=== PATIENT | male | born 1950 | race American Indian/Alaskan Native ===

== ENCOUNTER 2016-10-15 10:55 | Emergency (ER) | payer OTHER, SELFPAY ==
[2016-10-15 11:34] VITALS: BP 164/106
--- NOTE | 2016-10-15 11:34 | Emergency Department Report ---
Chief Complaint: Chest Pain Stated Complaint: GAS IN CHEST PAIN Time Seen by Provider: 10/15/16 11:31 - HPI History of Present Illness: PT c/o feeling "gas" in chest since 399. PT states he has felt like this daily for 6 months. - ROS Review of Systems: + nausea - vomiting - Exam Physical Exam: PT looks well, non toxic. steady gait no acute resp distress in triage MSE screening note: Focused history and physical exam performed. Due to findings the following was ordered: ekg, labs, xr ED Disposition for MSE Condition: Stable
[2016-10-15 11:54] LABS: Basophils % (Auto) 0.8 % (0.0-1.8); Eosinophils % (Auto) 2.1 % (0.0-4.3); Hemoglobin 12.4 gm/dl (11.8-15.2); Mean Corpuscular HGB Conc 33 % (32-34); Mean Corpuscular Hemoglobin 31 pg (28-32); Mean Corpuscular Volume 93 fl (84-94); Platelet Count 152 K/mm3 (140-440); Red Cell Distribution Width 15.8 % (13.2-15.2); White Blood Count 6.8 K/mm3 (4.5-11.0)
[2016-10-15 12:04] LABS: INR 0.94 (0.87-1.13)
[2016-10-15 12:05] LABS: Partial Thromboplastin Time 30.9 Sec. (24.2-36.6)
[2016-10-15 12:07] LABS: Alanine Aminotransferase 8 units/L (7-56); Albumin 4.2 g/dL (3.9-5); Albumin/Globulin Ratio 1.4 %; Alkaline Phosphatase 56 units/L (35-129); Anion Gap 17 mmol/L; BUN/Creatinine Ratio 11.53; Blood Urea Nitrogen 15 mg/dL (9-20); Carbon Dioxide 27 mmol/L (22-30); Chloride 98.9 mmol/L (98-107); Glucose 90 mg/dL (75-100); Lipase 22 units/L (13-60); Potassium 4.5 mmol/L (3.6-5.0); Sodium 138 mmol/L (137-145); Total Protein 7.1 g/dL (6.3-8.2)
--- NOTE | 2016-10-15 12:33 | XRay Report ---
CHEST 2 VIEWS INDICATION: Chest pain. COMPARISON: 03/22/2015. FINDINGS: PA and lateral chest radiographs demonstrate normal cardiomediastinal silhouette. Clear, hyperexpanded lungs/COPD. Stable left AICD with dual-chamber leads. Intact bones. CONCLUSION: COPD without acute chest process, as described. Thank you for the opportunity to participate in this patient's care.
--- NOTE | 2016-10-15 23:34 | ED Elopement Review ---
ED Pt Elopement review - Results review Lab results: Laboratory Tests 10/15/16 10/15/16 10/15/16 11:37 11:37 11:37 WBC 6.8 RBC 4.00 Hgb 12.4 Hct 37.0 MCV 93 MCH 31 MCHC 33 RDW 15.8 H Plt Count 152 Lymph % (Auto) 21.9 Maverick % (Auto) 7.6 H Eos % (Auto) 2.1 Baso % (Auto) 0.8 Lymph # 1.5 Maverick # 0.5 Eos # 0.1 Baso # 0.1 Seg Neutrophils % 67.6 Seg Neutrophils # 4.6 PT 12.5 INR 0.94 APTT 30.9 Sodium 138 Potassium 4.5 Chloride 98.9 Carbon Dioxide 27 Anion Gap 17 BUN 15 Creatinine 1.3 Estimated GFR > 60 BUN/Creatinine Ratio 11.53 Glucose 90 Calcium 9.0 Total Bilirubin 0.20 AST 15 ALT 8 Alkaline Phosphatase 56 Troponin T 0.012 Total Protein 7.1 Albumin 4.2 Albumin/Globulin Ratio 1.4 Lipase 22 - Call Back decision Pt Call Back Decision: Call pt to return to ED L[facility] (chest pain showed be further evaluated)
== END 2016-10-15 12:00 | disposition left against medical advice (07) ==
LOC: ED 10:55
DX: R14.1 Gas pain (principal); R11.0 Nausea; Z53.21 Procedure and treatment not carried out due to patient leaving prior to being seen by health care provider
CPT/HCPCS: 36415; 71020; 80053; 83690; 84484; 85025; 85610; 85730; 93005; 93010

== ENCOUNTER 2017-03-17 15:18 | Emergency (ER) | payer OTHER ==
[2017-03-17] MEDS ORDERED: LIDOCAINE VISCOUS 2% PO ONE (15:31)
[2017-03-17] MEDS ORDERED: ALUM-MAG HYDROX-SIMETH 200-200-20MG/5ML PO ONE (15:32)
[2017-03-17 16:08] LABS: Basophils # (Auto) 0.1 K/mm3 (0.0-0.1); Basophils % (Auto) 0.5 % (0.0-1.8); Eosinophils # (Auto) 0.1 K/mm3 (0.0-0.4); Eosinophils % (Auto) 1.3 % (0.0-4.3); Hematocrit 41.3 % (35.5-45.6); Hemoglobin 13.9 gm/dl (11.8-15.2); Lymphocytes # (Auto) 1.7 K/mm3 (1.2-5.4); Mean Corpuscular HGB Conc 34 % (32-34); Mean Corpuscular Hemoglobin 32 pg (28-32); Mean Corpuscular Volume 94 fl (84-94); Monocytes # (Auto) 0.9 K/mm3 (0.0-0.8); Monocytes % (Auto) 8.9 % (0.0-7.3); Platelet Count 135 K/mm3 (140-440); Red Cell Distribution Width 15.9 % (13.2-15.2)
--- NOTE | 2017-03-17 16:15 | XRay Report ---
FINAL REPORT EXAM: XR CHEST 1V AP HISTORY: Chest Pain TECHNIQUE: upright single view chest PRIORS: Comparison is dated January 04, 2015 FINDINGS: Cardiac and mediastinal contours are unremarkable. No focal pulmonary infiltrate is identified. No pleural fluid collection seen. Pulmonary vasculature is unremarkable. Pacemaker is present. Lead wires are intact. IMPRESSION: Pacemaker. No acute abnormality.
[2017-03-17 16:21] LABS: Alanine Aminotransferase 12 units/L (7-56); Albumin 4.2 g/dL (3.9-5); BUN/Creatinine Ratio 14; Blood Urea Nitrogen 20 mg/dL (9-20); Calcium 9.1 mg/dL (8.4-10.2); Hemolysis Index 17; Lipase 27 units/L (13-60)
[2017-03-17 16:34] LABS: Chol/HDL Ratio 2.18 %; HDL Cholesterol 61 mg/dL (40-59); LDL Cholesterol,Direct 49 mg/dL (50-130)
[2017-03-17] MEDS ORDERED: APRESOLINE PO ONE (16:39)
--- NOTE | 2017-03-17 17:05 | Emergency Department Report ---
ED Chest Pain HPI - General Chief Complaint: Chest Pain Stated Complaint: CHEST PAIN Time Seen by Provider: 03/17/17 15:27 Source: patient, EMS Mode of arrival: Stretcher Limitations: No Limitations - History of Present Illness Initial Comments: Very pleasant 66 yo male with a history of sick sinus syndrome and congestive heart failure presents with heartburn for several months. The symptoms have progressively become more severe. He has taken [id number] antacids with mild relief. He states that he is "addicted" to coffee. Otherwise he has a bland diet. He denies history of coronary artery disease. He said he never had a heart attack. He has been evaluated by his primary physician for similar complaints. MD Complaint: chest pain -: month(s) Onset: during rest Pain Location: substernal Pain Radiation: none Severity: moderate Severity scale (0 -10): 5 Quality: other (burning) Consistency: constant Improves With: antacids Worsens With: exertion re: nausea Other Symptoms: denies: cough, fever, syncope - Related Data Home Medications Medication Instructions Recorded Confirmed Last Taken Lisinopril [Zestril TAB] 20 mg PO QDAY 03/18/15 03/18/15 Unknown Previous Rx's Medication Instructions Recorded Last Taken Type Aspirin [Aspirin TAB] 325 mg PO QDAY #30 tablet 01/06/15 Unknown Rx ISOSORBIDE MONOnitrate [Imdur ER] 30 mg PO QDAY #30 tablet 01/06/15 Unknown Rx Simvastatin [Zocor TAB] 20 mg PO QHS #30 tablet 01/06/15 Unknown Rx Doxycycline [Vibramycin CAP] 100 mg PO Q12HR #14 capsule 03/23/15 Unknown Rx hydrALAZINE [Apresoline TAB] 100 mg PO BID #60 tablet 03/23/15 Unknown Rx Allergies Allergy/AdvReac Type Severity Reaction Status Date / Time Penicillins Allergy Rash Verified 12/02/12 10:21 Heart Score - HEART Score History: Slightly suspicious EKG: Non-specific Age: 45-65 Risk factors: > 3 risk factors or hx of atherosclerotic disease Troponin: 1-3x normal limit HEART Score: 5 ED Review of Systems ROS: Stated complaint: CHEST PAIN Other details as noted in HPI Comment: All other systems reviewed and negative Constitutional: denies: chills, fever ENT: denies: ear pain Respiratory: denies: cough ED Past Medical Hx - Past Medical History Hx Hypertension: Yes Hx Congestive Heart Failure: Yes Hx Diabetes: No Hx GERD: Yes Hx Renal Disease: Yes Hx Asthma: No Additional medical history: pacer - Surgical History Hx Pacemaker: Yes Additional Surgical History: Abdominal wall hernia - Social History Smoking Status: Never Smoker Substance Use Type: None - Medications Home Medications: Home Medications Medication Instructions Recorded Confirmed Last Taken Type Aspirin [Aspirin TAB] 325 mg PO QDAY #30 tablet 01/06/15 03/18/15 Unknown Rx ISOSORBIDE MONOnitrate [Imdur ER] 30 mg PO QDAY #30 tablet 01/06/15 03/18/15 Unknown Rx Simvastatin [Zocor TAB] 20 mg PO QHS #30 tablet 01/06/15 03/18/15 Unknown Rx Lisinopril [Zestril TAB] 20 mg PO QDAY 03/18/15 03/18/15 Unknown History Doxycycline [Vibramycin CAP] 100 mg PO Q12HR #14 capsule 03/23/15 Unknown Rx hydrALAZINE [Apresoline TAB] 100 mg PO BID #60 tablet 03/23/15 Unknown Rx ED Physical Exam - General Limitations: No Limitations General appearance: alert - Head Head exam: Present: atraumatic, normocephalic - Eye Eye exam: Present: normal appearance - ENT ENT exam: Present: mucous membranes moist - Neck Neck exam: Present: normal inspection - Respiratory Respiratory exam: Present: normal lung sounds bilaterally. Absent: respiratory distress, wheezes, rales, rhonchi - Cardiovascular Cardiovascular Exam: Present: regular rate, normal rhythm, normal heart sounds. Absent: systolic murmur, diastolic murmur, rubs, gallop - GI/Abdominal GI/Abdominal exam: Present: soft, normal bowel sounds. Absent: distended, tenderness, guarding, rebound - Rectal Rectal exam: Present: deferred - Extremities Exam Extremities exam: Present: normal inspection - Back Exam Back exam: Present: normal inspection - Neurological Exam Neurological exam: Present: alert, oriented X3 - Psychiatric Psychiatric exam: Present: normal affect, normal mood - Skin Skin exam: Present: warm, dry, intact, normal color. Absent: rash ED Course Vital Signs 03/17/17 03/17/17 16:03 16:25 Temperature 98.6 F Pulse Rate 70 Respiratory 16 16 Rate Blood Pressure 175/99 O2 Sat by Pulse 99 Oximetry DAISHA score - Daisha Score Age > 65: (0) No Aspirin use within the Past 7 Days: (0) No 3 or more CAD Risk Factors: (1) Yes 2 or more Angina events in past 24 hrs: (0) No Known CAD with more than 50% Stenosis: (0) No Elevated Cardiac Markers: (0) No ST Deviation Greater than 0.5mm: (0) No DAISHA Score: 1 ED Medical Decision Making - Lab Data Result diagrams: 03/17/17 16:02 03/17/17 16:02 - EKG Data 03/17/17 17:07 EKG obtained 1555 AV pacing noted appropriately wide QRS and nonspecific ST-T pattern no signs of ischemia - Medical Decision Making Mr. Cameron presents with the daily heartburn and chest pain. I do feel that this represents GERD or esophagitis. He received immediate relief with a GI cocktail Maalox and viscous lidocaine. However patient does have cardiovascular risk factors. Cardiac catheterization 2015 revealed 80% ostial lesion otherwise coronary arteries are patent. Ostial lesion at that time was medically managed. Mr. Cameron presents with equivocal troponin values. I suspect due to patient's cardiomyopathy. He has a hx of diastolic heart failure. Pain completely resolved with GI cocktail. He was given strong return precautions. He understands to return to severe pain, shortness of breath or persistent/new symptoms. Mr. Cameron insists on going home. He is symptom-free. I do not suspect ACS. Patient is a retired medic. I trust he will contact EMS if necessary. Critical care attestation.: If time is entered above; I have spent that time in minutes in the direct care of this critically ill patient, excluding procedure time. ED Disposition Clinical Impression: GERD (gastroesophageal reflux disease), Chest pain Disposition: -01 TO HOME OR SELFCARE Is pt being admited?: No Does the pt Need Aspirin: No Condition: Stable Instructions: Chest Pain (ED) Additional Instructions: Please call 911 if your symptoms return. Referrals: PRIMARY CARE, [Primary Care Provider] - 3-5 Days Time of Disposition: 19:03
[2017-03-17 19:34] VITALS: BP 171/101
== END 2017-03-17 19:35 | disposition home or self-care (01) ==
LOC: ED 15:18
DX: K21.9 Gastro-esophageal reflux disease without esophagitis (principal); R07.89 Other chest pain; I10 Essential (primary) hypertension; I50.9 Heart failure, unspecified
CPT/HCPCS: 36415; 71045; 80053; 80061; 83690; 84484; 85025; 93005; 93010